=== PATIENT | female | born 1945 | race Caucasian/White ===

== ENCOUNTER 2022-06-14 09:43 | Outpatient (CLI) | payer MEDICARE | END 2022-06-14 09:44 | disposition home or self-care (01) | LOC: BICMAMMO 09:43 | PROVIDERS: ATTEND Internal Medicine | DX: Z12.31 Encounter for screening mammogram for malignant neoplasm of breast (principal) | CPT/HCPCS: 77063; 77067 ==

== ENCOUNTER 2023-03-28 09:52 | Outpatient (CLI) | payer MEDICARE | END 2023-03-28 09:53 | disposition home or self-care (01) | LOC: BICCT 09:52 | PROVIDERS: ATTEND Internal Medicine | DX: R11.0 Nausea (principal); K57.92 Diverticulitis of intestine, part unspecified, without perforation or abscess without bleeding; R10.10 Upper abdominal pain, unspecified; R63.0 Anorexia; R19.4 Change in bowel habit; N28.1 Cyst of kidney, acquired; K57.30 Diverticulosis of large intestine without perforation or abscess without bleeding; I70.90 Unspecified atherosclerosis; I70.1 Atherosclerosis of renal artery; K55.1 Chronic vascular disorders of intestine; M43.16 Spondylolisthesis, lumbar region; M51.37 Other intervertebral disc degeneration, lumbosacral region; Z86.010 Personal history of colon polyps; Z85.820 Personal history of malignant melanoma of skin | CPT/HCPCS: 74177; 82565 ==

== ENCOUNTER 2023-06-24 10:23 | Outpatient (CLI) | payer MEDICARE | END 2023-06-24 10:24 | disposition home or self-care (01) | LOC: BICMAMMO 10:23 | PROVIDERS: ATTEND Internal Medicine | DX: Z12.31 Encounter for screening mammogram for malignant neoplasm of breast (principal); Z85.89 Personal history of malignant neoplasm of other organs and systems | CPT/HCPCS: 77063; 77067 ==

== ENCOUNTER 2023-10-07 02:28 | Observation (INO) | payer MEDICARE ==
[2023-10-07 03:21] LABS: #Basophils Less than 0.03 10x3/uL (0.0-0.2); %Basophils 0.3 % (0.0-1.0); %Eosinophils 1.6 % (0.0-10.0); %Lymphocytes 17.8 % (21.0-51.0); %Monocytes 7.3 % (0.0-10.0); %Neutrophils 72.7 % (42.0-75.0); Hemoglobin 12.7 g/dL (12.0-16.0); Mean Corpuscular HGB CONC 31.8 g/dL (32.0-36.0); Mean Corpuscular Hemoglobin 30.4 pg (27.0-31.0); Mean Corpuscular Volume 95.7 fL (78.0-98.0); Platelet Count 147 10x3/uL (130-400); RBC Distribution Width 13.1 % (11.5-14.5); Red Blood Cell (RBC) Count 4.18 mill/uL (4.20-5.40)
[2023-10-07 03:35] LABS: ALT (SGPT) 8 U/L (8-55); AST (SGOT) 16 U/L (5-34); Albumin 3.8 g/dL (3.4-4.8); Alkaline Phosphatase 104 U/L (40-110); Anion Gap 16 mmol/L (10-20); BUN (Urea Nitrogen) 19 mg/dL (9.8-20.1); Bilirubin, Total 0.4 mg/dL (0.2-1.2); Calc. Creatinine Clearance 0 mL/min (70-130); Calcium 8.9 mg/dL (7.8-10.44); Carbon Dioxide 20 mmol/L (23-31); Chloride 107 mmol/L (98-107); Estimated GFR 69; Glucose 153 mg/dL (83-110); Lipase 16 U/L (8-78); Magnesium 1.9 mg/dL (1.6-2.6); Potassium 3.7 mmol/L (3.5-5.1); Protein, Total 6.8 g/dL (5.8-8.1); Sodium 139 mmol/L (136-145)
[2023-10-07 03:38] LABS: Troponin I Less than 0.010 ng/mL (< 0.028)
[2023-10-07] MEDS ORDERED: Ondansetron PF 4 MG/2 ML Vial ONE (04:33)
[2023-10-07] MEDS ORDERED: Meclizine HCl 25 MG TAB ONE (04:33)
[2023-10-07] MEDS ORDERED: Boostrix 0.5 ML (Tdap) VIAL (>/=7 yrs of age) ONE (04:34)
[2023-10-07] MEDS ORDERED: Magnesium 2 GM/50 ML BAG (IN WATER) ONE (05:51)
[2023-10-07] MEDS ORDERED: Iopamidol-370 76% 500 ML MDV (1 ML CHARGE) ONE (10:16)
[2023-10-07] MEDS ORDERED: Ondansetron PF 4 MG/2 ML Vial IVP PRN (10:45)
[2023-10-07] MEDS ORDERED: Ondansetron ODT 4 MG TAB PO PRN (10:45)
[2023-10-07] MEDS ORDERED: Calcium Carbonate 500 MG ChewTAB PO PRN (10:45)
[2023-10-07] MEDS ORDERED: Senokot S 8.6-50 MG TAB PO PRN (10:45)
[2023-10-07] MEDS ORDERED: Acetaminophen 325 MG TAB PO PRN (10:45)
[2023-10-07] MEDS ORDERED: Nitroglycerin 0.4 MG TAB (25 Tab Bottle) SL PRN (10:47)
[2023-10-07 10:58] VITALS: BMI 28.8
[2023-10-07] MEDS: Potassium Bicarbonate/Cit Ac 20 MEQ TAB PO SCH (11:23)
[2023-10-07 12:20] LABS: Troponin I Less than 0.010 ng/mL (< 0.028)
[2023-10-07 15:07] LABS: Troponin I Less than 0.010 ng/mL (< 0.028)
[2023-10-07] MEDS: Amlodipine 5 MG TAB PO SCH (21:20)
[2023-10-07] MEDS: Rosuvastatin 10 MG TAB PO SCH (21:20)
[2023-10-07] MEDS: Montelukast Sodium 10 mg Tablet PO SCH (21:20)
[2023-10-08 06:03] LABS: #Basophils 0.03 10x3/uL (0.0-0.2); %Basophils 0.7 % (0.0-1.0); %Eosinophils 2.4 % (0.0-10.0); %Lymphocytes 31.2 % (21.0-51.0); %Monocytes 11.1 % (0.0-10.0); %Neutrophils 54.4 % (42.0-75.0); Hematocrit 40.4 % (36.0-47.0); Hemoglobin 12.9 g/dL (12.0-16.0); Mean Corpuscular HGB CONC 31.9 g/dL (32.0-36.0); Mean Platelet Volume 11.5 fL (7.4-10.4); Platelet Count 160 10x3/uL (130-400); RBC Distribution Width 13.2 % (11.5-14.5)
[2023-10-08 06:27] LABS: Anion Gap 14 mmol/L (10-20); BUN (Urea Nitrogen) 18 mg/dL (9.8-20.1); Calc. Creatinine Clearance 51 mL/min (70-130); Carbon Dioxide 27 mmol/L (23-31); Chloride 107 mmol/L (98-107); Estimated GFR 49; Glucose 99 mg/dL (83-110); Magnesium 2.4 mg/dL (1.6-2.6); Potassium 4.6 mmol/L (3.5-5.1); Sodium 143 mmol/L (136-145)
[2023-10-08 08:36] VITALS: TEMP 97.2
[2023-10-08] MEDS: Carvedilol 6.25 MG TAB PO SCH (10:08)
[2023-10-08 11:07] VITALS: BP 133/61
== END 2023-10-08 12:49 | disposition home or self-care (01) ==
LOC: ERS 02:28 → 2SW 10:42
PROVIDERS: ADMIT Internal Medicine; ATTEND Internal Medicine
DX: R42 Dizziness and giddiness (principal); E11.9 Type 2 diabetes mellitus without complications; I48.0 Paroxysmal atrial fibrillation; I10 Essential (primary) hypertension; J45.909 Unspecified asthma, uncomplicated; E03.9 Hypothyroidism, unspecified; E87.6 Hypokalemia; K57.30 Diverticulosis of large intestine without perforation or abscess without bleeding; E83.42 Hypomagnesemia; F41.9 Anxiety disorder, unspecified; E66.9 Obesity, unspecified; Z79.82 Long term (current) use of aspirin; Z79.890 Hormone replacement therapy; Z86.73 Personal history of transient ischemic attack (TIA), and cerebral infarction without residual deficits; Z79.899 Other long term (current) drug therapy; Z90.710 Acquired absence of both cervix and uterus; Z90.49 Acquired absence of other specified parts of digestive tract; Z98.890 Other specified postprocedural states; Z79.01 Long term (current) use of anticoagulants
CPT/HCPCS: 70450; 72125; 74177; 80048; 80053; 83690; 83735 ×2; 84484 ×2; 85025 ×2; 90471; 90715; 93005; 96365; 99285; G0378 ×3; J3475; Q9967; 36415; 93010; J2405

== ENCOUNTER 2023-12-12 08:40 | Inpatient (IN) | payer MEDICARE ==
[2023-12-12 09:27] LABS: #Basophils 0.04 10x3/uL (0.0-0.2); %Basophils 0.8 % (0.0-1.0); %Eosinophils 2.7 % (0.0-10.0); %Lymphocytes 26.1 % (21.0-51.0); %Monocytes 8.6 % (0.0-10.0); %Neutrophils 61.4 % (42.0-75.0); Hematocrit 39.7 % (36.0-47.0); Hemoglobin 12.9 g/dL (12.0-16.0); Mean Corpuscular HGB CONC 32.5 g/dL (32.0-36.0); Mean Corpuscular Hemoglobin 30.2 pg (27.0-31.0); Mean Platelet Volume 10.8 fL (7.4-10.4); Platelet Count 182 10x3/uL (130-400); RBC Distribution Width 13.6 % (11.5-14.5); Red Blood Cell (RBC) Count 4.27 mill/uL (4.20-5.40)
[2023-12-12 09:51] LABS: ALT (SGPT) 14 U/L (8-55); AST (SGOT) 16 U/L (5-34); Albumin 3.8 g/dL (3.4-4.8); Alkaline Phosphatase 93 U/L (40-110); Anion Gap 12 mmol/L (10-20); BUN (Urea Nitrogen) 22 mg/dL (9.8-20.1); Bilirubin, Total 0.7 mg/dL (0.2-1.2); Calc. Creatinine Clearance 0 mL/min (70-130); Carbon Dioxide 25 mmol/L (23-31); Chloride 108 mmol/L (98-107); Estimated GFR 67; Globulin 2.9 g/dL (2.4-3.5); Glucose 154 mg/dL (83-110); Protein, Total 6.7 g/dL (5.8-8.1); Sodium 141 mmol/L (136-145)
[2023-12-12 09:57] LABS: Troponin I Less than 0.010 ng/mL (< 0.028)
[2023-12-12] MEDS ORDERED: Aspirin Chewable 81 MG TAB ONE (10:43)
[2023-12-12] MEDS ORDERED: Acetaminophen 325 MG TAB ONE (12:41)
[2023-12-12] MEDS: Acetaminophen 325 MG TAB PO SCH (12:45)
[2023-12-12] MEDS ORDERED: Iopamidol-370 76% 500 ML MDV (1 ML CHARGE) ONE (14:50)
[2023-12-12 14:59] LABS: Bilirubin Negative (Negative); Blood, Urine Negative (Negative); Clarity Clear (Clear); Glucose, Urine (Dipstick) Normal (Negative); Ketone, Urine Negative (Negative); Leukocyte Negative Leu/uL (Negative); Nitrite Negative (Negative); Protein, Urine (Dipstick) Negative (Neg-Trace); RBC/HPF 0-3 HPF (0-3); Specific Gravity, Urine 1.014 (1.002-1.036); Squamous Epithelial 0-3 HPF (0-3); Urobilinogen Normal mg/dL (Less than 2); WBC/HPF 0-3 HPF (0-3)
[2023-12-12 15:01] LABS: Bacteria/HPF Rare-Few HPF (None Seen)
[2023-12-12 15:02] LABS: Urine Culture Reflex No No
[2023-12-12 17:54] VITALS: BMI 28.9
[2023-12-12] MEDS: Montelukast Sodium 10 mg Tablet PO SCH (20:33)
[2023-12-12] MEDS: Amlodipine 5 MG TAB PO SCH (20:33)
[2023-12-12] MEDS: Amiodarone 200 MG TAB PO SCH (20:34)
[2023-12-12] MEDS: Rosuvastatin 10 MG TAB PO SCH (20:35)
[2023-12-12] MEDS ORDERED: Non-Formulary Item 1 EACH (Amiodarone Hcl [Amiodarone Hcl] 100 MG Tablet) PO SCH (21:00)
[2023-12-13 04:04] LABS: #Basophils 0.03 10x3/uL (0.0-0.2); %Basophils 0.6 % (0.0-1.0); %Eosinophils 2.3 % (0.0-10.0); %Lymphocytes 32.6 % (21.0-51.0); %Monocytes 10.7 % (0.0-10.0); %Neutrophils 53.6 % (42.0-75.0); Hematocrit 37.6 % (36.0-47.0); Hemoglobin 12.1 g/dL (12.0-16.0); Mean Corpuscular HGB CONC 32.2 g/dL (32.0-36.0); Mean Corpuscular Hemoglobin 29.6 pg (27.0-31.0); Mean Corpuscular Volume 91.9 fL (78.0-98.0); Mean Platelet Volume 10.8 fL (7.4-10.4); Platelet Count 169 10x3/uL (130-400); RBC Distribution Width 13.6 % (11.5-14.5); Red Blood Cell (RBC) Count 4.09 mill/uL (4.20-5.40)
[2023-12-13 04:22] LABS: Anion Gap 13 mmol/L (10-20); BUN (Urea Nitrogen) 18 mg/dL (9.8-20.1); Calc. Creatinine Clearance 67 mL/min (70-130); Calcium 9.2 mg/dL (7.8-10.44); Carbon Dioxide 27 mmol/L (23-31); Cardiac Risk 2.2 (Less than 4.5); Chloride 107 mmol/L (98-107); Cholesterol 110 mg/dl (< 200 Desired); Estimated GFR 66; Glucose 106 mg/dL (83-110); HDL Cholesterol 49 mg/dL (>60 Neg Risk); LDL Cholesterol, Calculated 46 mg/dL; Potassium 3.9 mmol/L (3.5-5.1); Sodium 143 mmol/L (136-145); Triglycerides 75 mg/dL (Less than 150)
[2023-12-13] MEDS: Levothyroxine Sodium 100 MCG TAB PO SCH (06:03)
[2023-12-13] MEDS: Pantoprazole DR 40 MG TAB PO SCH (07:48)
[2023-12-13] MEDS: Aspirin 325 mg Enteric Coated Tablet PO SCH (07:48)
[2023-12-13] MEDS: Magnesium Oxide 250 MG TAB PO SCH (08:42)
[2023-12-13] MEDS: Carvedilol 3.125 MG TAB PO SCH ×2 (08:43→17:58)
[2023-12-13] MEDS: Docusate 100 MG CAP PO SCH (08:43)
[2023-12-13] MEDS: Clopidogrel Bisulfate 75 MG TAB PO SCH (08:43)
[2023-12-13] MEDS: Calcium Polycarbophil 625 MG TAB PO SCH (08:44)
[2023-12-13] MEDS ORDERED: Non-Formulary Item 1 EACH (Omeprazole [Omeprazole] 20 MG Capsule.Dr) PO SCH (09:00)
[2023-12-13 09:22] VITALS: BMI 28.9
[2023-12-13] MEDS: Lorazepam 2 MG/ML VIAL SLOW IVP SCH (09:29)
[2023-12-13] MEDS: Losartan 25 MG TAB PO SCH (21:36)
[2023-12-13] MEDS: Aspirin 81 mg Enteric Coated Tablet PO SCH (21:36)
[2023-12-13] MEDS: Melatonin 3 MG TAB PO SCH (22:20)
[2023-12-14] MEDS: Melatonin 3 MG TAB PO PRN (23:26)
[2023-12-15] MEDS: Amlodipine 5 MG TAB PO SCH (15:34)
[2023-12-15] MEDS: Doxycycline 100 MG CAP PO SCH (22:17)
[2023-12-16] MEDS: Amlodipine 5 MG TAB PO SCH (08:54)
[2023-12-17 12:03] VITALS: BP 148/77; TEMP 97.5
[2023-12-17] MEDS: Lorazepam 2 MG/ML VIAL SLOW IVP SCH (14:59)
== END 2023-12-17 18:44 | disposition home or self-care (01) | DRG 66 ==
LOC: ERS 08:40 → ERHOLD 11:10 → 2SE 17:24 → OBSVTOIN 12-13 14:48
PROVIDERS: ADMIT Internal Medicine; ATTEND Hospitalist
DX: I63.89 Other cerebral infarction (principal); E11.9 Type 2 diabetes mellitus without complications; I10 Essential (primary) hypertension; E03.9 Hypothyroidism, unspecified; I48.91 Unspecified atrial fibrillation; Z79.899 Other long term (current) drug therapy; Z79.890 Hormone replacement therapy; Z79.01 Long term (current) use of anticoagulants; Z79.82 Long term (current) use of aspirin; Z90.49 Acquired absence of other specified parts of digestive tract; Z90.710 Acquired absence of both cervix and uterus; J44.9 Chronic obstructive pulmonary disease, unspecified; R29.700 NIHSS score 0
CPT/HCPCS: 36415; 70450; 70496; 70498; 76999; 80048; 80053; 80061; 81001; 83735; 84484; 85025; 93005; 93306; 96374; G0378; J2060; Q9967

== ENCOUNTER 2025-04-19 21:07 | Emergency (ER) | payer MEDICARE ==
[2025-04-20 00:14] LABS: #Basophils 0.04 10x3/uL (0.0-0.2); #Eosinophils 0.05 10x3/uL (0.0-0.7); #Monocytes 0.70 10x3/uL (0.11-0.59); #Neutrophils 2.78 10x3/uL (1.40-6.50); %Basophils 0.8 % (0.0-1.0); %Eosinophils 1.1 % (0.0-10.0); %Lymphocytes 24.6 % (21.0-51.0); %Monocytes 14.7 % (0.0-10.0); %Neutrophils 58.6 % (42.0-75.0); Hematocrit 38.8 % (36.0-47.0); Hemoglobin 11.7 g/dL (12.0-16.0); Mean Corpuscular Hemoglobin 28.8 pg (27.0-31.0); Mean Corpuscular Volume 95.6 fL (78.0-98.0); Platelet Count 189 10x3/uL (130-400); Red Blood Cell (RBC) Count 4.06 mill/uL (4.20-5.40); White Blood Cell (WBC) Count 4.75 10x3/uL (4.8-10.8)
[2025-04-20 00:31] LABS: ALT (SGPT) 15 U/L (Less than 34); AST (SGOT) 22 U/L (11-34); Albumin 3.6 g/dL (3.1-4.5); Alkaline Phosphatase 79 U/L (40-110); Anion Gap 15 mmol/L (10-20); BUN (Urea Nitrogen) 23 mg/dL (9.8-20.1); Bilirubin, Total 0.2 mg/dL (0.3-1.2); Calc. Creatinine Clearance 0 mL/min (70-130); Calcium 9.3 mg/dL (7.8-10.44); Carbon Dioxide 26 mmol/L (23-31); Chloride 107 mmol/L (98-107); Globulin 3.2 g/dL (2.4-3.5); Glucose 113 mg/dL (83-110); Potassium 4.5 mmol/L (3.5-5.1); Sodium 143 mmol/L (136-145)
[2025-04-20 00:39] LABS: Bacteria/HPF 4+ HPF (None Seen); CAUTI Indications for Culture Dysuria,urgency,freq; Glucose, Urine (Dipstick) Normal (Negative); Leukocyte 250 Leu/uL (Negative); Protein, Urine (Dipstick) Negative (Neg-Trace); RBC/HPF 0-3 HPF (0-3); Specific Gravity, Urine 1.027 (1.002-1.036)
[2025-04-20 00:40] LABS: Urine Culture Reflex Yes Yes
== END 2025-04-20 01:10 | disposition home or self-care (01) ==
LOC: ERS 21:07
DX: U07.1 COVID-19 (principal); N39.0 Urinary tract infection, site not specified; J44.9 Chronic obstructive pulmonary disease, unspecified; I10 Essential (primary) hypertension
CPT/HCPCS: 36415; 71045; 80053; 81001; 83605; 85025; 87077; 87086; 87186; 87428; 93005